=== PATIENT | male | born 1990 | race American Indian/Alaskan Native ===

== ENCOUNTER 2021-12-23 21:43 | Emergency (ER) | payer SELFPAY ==
[2021-12-23] MEDS ORDERED: Take Home: LORazepam 0.5 MG Tab, 2 Tab Pack PO ONE (22:05)
== END 2021-12-23 22:10 | disposition home or self-care (01) ==
LOC: MERGE 21:43 → VM.ED 21:43
DX: F41.9 Anxiety disorder, unspecified (principal); Z88.0 Allergy status to penicillin
CPT/HCPCS: 99283; A9270

== ENCOUNTER 2022-01-02 15:13 | Emergency (ER) | payer MEDICAID ==
[2022-01-02 16:08] LABS: BARBITURATE SCREEN,URINE NEGATIVE (NEGATIVE); BENZODIAZEPINES SCREEN,URINE NEGATIVE (NEGATIVE); BUPRENORPHINE SCREEN,URINE NEGATIVE (NEGATIVE); METHAMPHETAMINE SCREEN, URINE NEGATIVE (NEGATIVE); THC SCREEN,URINE 50 NG/ML POSITIVE (NEGATIVE)
[2022-01-02 16:10] LABS: CHLORIDE,CL 100 mmol/L (98-107); SODIUM,NA 135 mmol/L (136-145)
[2022-01-02 16:11] LABS: ANION GAP 13.7 mmol/L (5-15); ESTIMATED GFR 102 mL/min (>=60)
[2022-01-02] MEDS: busPIRone 5 MG Tab PO ONE (16:14)
== END 2022-01-02 18:10 | disposition home or self-care (01) ==
LOC: VM.ED 15:13
DX: R45.851 Suicidal ideations (principal); F41.9 Anxiety disorder, unspecified; F60.0 Paranoid personality disorder; Z88.0 Allergy status to penicillin
CPT/HCPCS: 36415; 80053; 80305-QW; 81003; 85025; 86140; 99284; A9270-GY

== ENCOUNTER 2022-04-30 16:15 | Emergency (ER) | payer MEDICAID ==
[2022-04-30] MEDS ORDERED: Take Home: LORazepam 0.5 MG Tab, 2 Tab Pack PO ONE (16:37)
== END 2022-04-30 16:49 | disposition home or self-care (01) ==
LOC: VM.ED 16:15
DX: F41.9 Anxiety disorder, unspecified (principal); Z88.0 Allergy status to penicillin
CPT/HCPCS: 99283; 99284; A9270-GY

== ENCOUNTER 2022-05-20 13:19 | Emergency (ER) | payer MEDICAID | END 2022-05-20 13:45 | disposition home or self-care (01) | LOC: VM.ED 13:19 | DX: R11.2 Nausea with vomiting, unspecified (principal); Z88.0 Allergy status to penicillin | CPT/HCPCS: 99283 ==

== ENCOUNTER 2022-07-12 18:02 | Emergency (ER) | payer MEDICAID ==
[2022-07-12 19:03] LABS: BARBITURATE SCREEN,URINE NEGATIVE (NEGATIVE)
[2022-07-12 19:04] LABS: BENZODIAZEPINES SCREEN,URINE POSITIVE (NEGATIVE); BUPRENORPHINE SCREEN,URINE NEGATIVE (NEGATIVE); METHAMPHETAMINE SCREEN, URINE NEGATIVE (NEGATIVE); THC SCREEN,URINE 50 NG/ML POSITIVE (NEGATIVE)
[2022-07-12 19:17] LABS: ACETAMINOPHEN 0 ug/ml (10-30); CHLORIDE,CL 104 mmol/L (98-107); ESTIMATED GFR 119 mL/min (>=60); SODIUM,NA 140 mmol/L (136-145)
[2022-07-12 20:02] LABS: CORONAVIRUS COVID-19 NAA NEGATIVE (NEGATIVE); RESPIRATORY SYNCYTIAL VIR NAA NEGATIVE (NEGATIVE)
== END 2022-07-12 21:30 ==
LOC: VM.ED 18:02
DX: R45.851 Suicidal ideations (principal); Z88.0 Allergy status to penicillin; Z20.822 Contact with and (suspected) exposure to COVID-19
CPT/HCPCS: 0241U; 36415; 80053; 80143; 80179; 80305-QW; 80307; 85025; 99283; 99285

== ENCOUNTER 2022-07-29 21:49 | Observation (INO) | payer SELFPAY ==
[2022-07-29 22:07] LABS: BASOPHILS PERCENT AUTO 0.4 % (0.2-1.2); EOSINOPHILS ABSOLUTE AUTO 0.4 x10^3/uL (0.0-0.5); EOSINOPHILS PERCENT AUTO 5.7 % (0.0-4.0); HEMOGLOBIN 12.3 g/dL (14.0-18.0); LYMPHOCYTES ABSOLUTE AUTO 2.4 x10^3/uL (1.0-4.8); LYMPHOCYTES PERCENT AUTO 34.4 % (25.0-50.0); MEAN CORPUSCULAR HEMOGLOBIN 27.9 pg (26.0-32.0); MEAN CORPUSCULAR HGB CONC 34.2 g/dL (32.0-36.0); MEAN CORPUSCULAR VOLUME 81.6 fL (78.0-93.0); MONOCYTES ABSOLUTE AUTO 0.8 x10^3/uL (0.0-0.8); NEUTROPHILS ABSOLUTE AUTO 3.4 x10^3/uL (1.8-7.7); NEUTROPHILS PERCENT AUTO 48.5 % (50.0-80.0); PLATELET COUNT,PLT 224 x10^3/uL (130-400); RED BLOOD CELL COUNT 4.41 x10^6/uL (4.5-6.0)
[2022-07-29 22:25] LABS: A/G RATIO 0.92; ALANINE AMINOTRANSFERASE,ALT 34 U/L (16-63); ALBUMIN 3.6 g/dL (3.4-5.0); ALKALINE PHOSPHATASE 81 U/L (46-116); ASPARTATE AMNIOTRANSFERASE,AST 20 U/L (15-37); BILIRUBIN TOTAL 0.4 mg/dL (0.2-1.0); BLOOD UREA NITROGEN,BUN 11 mg/dL (7-18); C-REACTIVE PROTEIN 7.1 mg/dL (<=0.9); CARBON DIOXIDE,CO2 31 mmol/L (21-32); CHLORIDE,CL 101 mmol/L (98-107); CREATININE 0.9 mg/dL (0.70-1.30); GLUCOSE RANDOM 117 mg/dL (70-99); POTASSIUM,K 3.5 mmol/L (3.5-5.1); PROTEIN TOTAL,TP 7.5 g/dL (6.4-8.2); SODIUM,NA 139 mmol/L (136-145)
[2022-07-29 22:26] LABS: ANION GAP 10.5 mmol/L (5-15); ESTIMATED GFR 115 mL/min (>=60)
[2022-07-29 22:33] LABS: ETHANOL BLOOD MEDICAL < 3 mg/dL (0-3)
[2022-07-29] MEDS: Naloxone 0.4 MG/ML SDV IVPUSH ONE (22:50)
[2022-07-29] MEDS: Sodium Chloride 0.9% 1,000 ML IV ONE (22:52)
[2022-07-29] MEDS: Flumazenil 0.1 MG/ML 5 ML MDV IVPUSH ONE ×2 (22:55→22:57)
[2022-07-29 23:21] LABS: AMPHETAMINES SCREEN, URINE NEGATIVE (NEGATIVE); BARBITURATE SCREEN,URINE NEGATIVE (NEGATIVE); BENZODIAZEPINES SCREEN,URINE POSITIVE (NEGATIVE); BUPRENORPHINE SCREEN,URINE POSITIVE (NEGATIVE); COCAINE METABOLITES,URINE NEGATIVE (NEGATIVE); METHADONE SCREEN, URINE NEGATIVE (NEGATIVE); METHAMPHETAMINE SCREEN, URINE NEGATIVE (NEGATIVE); OXYCODONE SCREEN,URINE NEGATIVE (NEGATIVE); PCP SCREEN,URINE NEGATIVE (NEGATIVE); THC SCREEN,URINE 50 NG/ML POSITIVE (NEGATIVE)
[2022-07-29 23:23] LABS: APPEARANCE,URINE CLEAR (CLEAR); BACTERIA,URINE RARE /HPF (NOT SEEN); BILIRUBIN,URINE NEGATIVE (NEGATIVE); COLOR,URINE DARK YELLOW (YELLOW); GLUCOSE,URINE NEGATIVE (NEGATIVE); KETONES,URINE NEGATIVE (NEGATIVE); LEUKOCYTE ESTERASE,URINE NEGATIVE (NEGATIVE); MUCUS,URINE MODERATE /LPF (NOT SEEN); NITRITE,URINE NEGATIVE (NEGATIVE); OCCULT BLOOD,URINE NEGATIVE (NEGATIVE); PH,URINE 6.5 (5.0-8.0); PROTEIN,URINE TRACE mg/dL (NEGATIVE); RBC,URINE 0-5 /HPF (NOT SEEN); UROBILINOGEN,URINE 0.2 EU/dL (0.2); WBC,URINE 0-5 /HPF (NOT SEEN)
[2022-07-30] MEDS ORDERED: Sodium Chloride 0.9% 10 ML Syringe FLUSH PRN (01:03)
[2022-07-30] MEDS ORDERED: Ondansetron 4 MG Tab.DIS PO PRN (01:03)
[2022-07-30] MEDS ORDERED: Ondansetron 4 MG/2 ML SDV IV PRN (01:03)
[2022-07-30] MEDS: Sodium Chloride 0.9% 1,000 ML IV SCH (02:00)
[2022-07-30 07:57] LABS: BASOPHILS PERCENT AUTO 0.4 % (0.2-1.2); EOSINOPHILS ABSOLUTE AUTO 0.5 x10^3/uL (0.0-0.5); EOSINOPHILS PERCENT AUTO 6.6 % (0.0-4.0); HEMATOCRIT 38.5 % (40.0-52.0); HEMOGLOBIN 12.7 g/dL (14.0-18.0); IMMATURE GRAN ABSOLUTE AUTO 0.01 x10^3/uL (0.00-0.07); LYMPHOCYTES ABSOLUTE AUTO 2.4 x10^3/uL (1.0-4.8); MEAN CORPUSCULAR HEMOGLOBIN 27.7 pg (26.0-32.0); MEAN CORPUSCULAR VOLUME 84.1 fL (78.0-93.0); MONOCYTES ABSOLUTE AUTO 0.9 x10^3/uL (0.0-0.8); MONOCYTES PERCENT AUTO 10.6 % (2.0-11.0); NEUTROPHILS ABSOLUTE AUTO 4.2 x10^3/uL (1.8-7.7); NEUTROPHILS PERCENT AUTO 52.3 % (50.0-80.0); PLATELET COUNT,PLT 239 x10^3/uL (130-400); RED BLOOD CELL COUNT 4.58 x10^6/uL (4.5-6.0)
[2022-07-30 08:11] LABS: CALCIUM 8.6 mg/dL (8.5-10.1); CREATININE 0.7 mg/dL (0.70-1.30); EST CRCL DRUG DOSING (CG) 158.37 mL/min; POTASSIUM,K 3.9 mmol/L (3.5-5.1)
[2022-07-30 08:15] LABS: ANION GAP 10.9 mmol/L (5-15)
[2022-07-30] MEDS: LORazepam 1 MG Tab PO ONE (10:42)
[2022-07-30 10:57] VITALS: BP 145/96; PULSE 114
== END 2022-07-30 11:11 | disposition home or self-care (01) ==
LOC: VM.ED 21:49 → VM.MS 07-30 00:59
PROVIDERS: ADMIT Physician Assistant Medical; ATTEND Physician Assistant Medical
DX: F19.10 Other psychoactive substance abuse, uncomplicated (principal); F22 Delusional disorders; F41.9 Anxiety disorder, unspecified; R41.0 Disorientation, unspecified; F32.A Depression, unspecified; Z79.899 Other long term (current) drug therapy; F43.10 Post-traumatic stress disorder, unspecified; Z88.0 Allergy status to penicillin
CPT/HCPCS: 36415; 80048; 80053; 80305-QW; 80307; 81001; 85025; 86140; 93005; 93010; 96361; 96374; 96375; 99236; 99285-25; A9270-GY; G0378; J2310; J3490; J7030

== ENCOUNTER 2022-08-04 16:29 | Emergency (ER) | payer SELFPAY ==
[2022-08-04] MEDS: Take Home: Ketorolac 10 MG Tab, 4 Tab Pack PO ONE (18:29)
== END 2022-08-04 18:30 | disposition home or self-care (01) ==
LOC: VM.ED 16:29
DX: M25.512 Pain in left shoulder (principal); Z88.0 Allergy status to penicillin
CPT/HCPCS: 73030-LT; 99283; A9270-GY

== ENCOUNTER 2022-08-09 22:08 | Emergency (ER) | payer SELFPAY | END 2022-08-09 23:10 | disposition home or self-care (01) | LOC: VM.ED 22:08 | DX: F41.9 Anxiety disorder, unspecified (principal); Z88.0 Allergy status to penicillin | CPT/HCPCS: 99283; 99284 ==

== ENCOUNTER 2022-08-25 20:29 | Emergency (ER) | payer MEDICAID ==
[2022-08-25] MEDS: Take Home: Ondansetron 4 MG Tab.DIS, 5 Tab Pack PO ONE (21:07)
== END 2022-08-25 21:10 | disposition home or self-care (01) ==
LOC: VM.ED 20:29
DX: R11.2 Nausea with vomiting, unspecified (principal); Z88.0 Allergy status to penicillin
CPT/HCPCS: 99283; Q0162

== ENCOUNTER 2022-09-07 10:23 | Emergency (ER) | payer MEDICAID ==
[2022-09-07 10:56] LABS: BASOPHILS PERCENT AUTO 0.3 % (0.2-1.2); EOSINOPHILS ABSOLUTE AUTO 0.5 x10^3/uL (0.0-0.5); EOSINOPHILS PERCENT AUTO 6.9 % (0.0-4.0); HEMATOCRIT 38.6 % (40.0-52.0); IMMATURE GRAN ABSOLUTE AUTO 0.01 x10^3/uL (0.00-0.07); LYMPHOCYTES ABSOLUTE AUTO 2.4 x10^3/uL (1.0-4.8); LYMPHOCYTES PERCENT AUTO 33.8 % (25.0-50.0); MEAN CORPUSCULAR HEMOGLOBIN 27.9 pg (26.0-32.0); MEAN CORPUSCULAR HGB CONC 33.7 g/dL (32.0-36.0); MEAN CORPUSCULAR VOLUME 82.8 fL (78.0-93.0); MONOCYTES ABSOLUTE AUTO 0.4 x10^3/uL (0.0-0.8); MONOCYTES PERCENT AUTO 6.1 % (2.0-11.0); NEUTROPHILS ABSOLUTE AUTO 3.8 x10^3/uL (1.8-7.7); NEUTROPHILS PERCENT AUTO 52.8 % (50.0-80.0); PLATELET COUNT,PLT 244 x10^3/uL (130-400); RED BLOOD CELL COUNT 4.66 x10^6/uL (4.5-6.0); WHITE BLOOD CELL COUNT,WBC 7.2 x10^3/uL (4.0-10.0)
[2022-09-07 11:26] LABS: A/G RATIO 1.08; ALANINE AMINOTRANSFERASE,ALT 18 U/L (16-63); ALKALINE PHOSPHATASE 100 U/L (46-116); ASPARTATE AMNIOTRANSFERASE,AST 13 U/L (15-37); BILIRUBIN TOTAL 0.7 mg/dL (0.2-1.0); BLOOD UREA NITROGEN,BUN 11 mg/dL (7-18); CALCIUM 8.4 mg/dL (8.5-10.1); CARBON DIOXIDE,CO2 28 mmol/L (21-32); CHLORIDE,CL 106 mmol/L (98-107); CREATININE 1.1 mg/dL (0.70-1.30); ESTIMATED GFR 90 mL/min (>=60); ETHANOL BLOOD MEDICAL < 3 mg/dL (0-3); GLUCOSE RANDOM 115 mg/dL (70-99); PROTEIN TOTAL,TP 7.7 g/dL (6.4-8.2); SODIUM,NA 142 mmol/L (136-145)
[2022-09-07 11:29] LABS: APPEARANCE,URINE CLEAR (CLEAR); BILIRUBIN,URINE NEGATIVE (NEGATIVE); COLOR,URINE YELLOW (YELLOW); GLUCOSE,URINE NEGATIVE (NEGATIVE); KETONES,URINE NEGATIVE (NEGATIVE); LEUKOCYTE ESTERASE,URINE NEGATIVE (NEGATIVE); NITRITE,URINE NEGATIVE (NEGATIVE); OCCULT BLOOD,URINE NEGATIVE (NEGATIVE); PROTEIN,URINE NEGATIVE (NEGATIVE); UROBILINOGEN,URINE 0.2 EU/dL (0.2)
[2022-09-07 11:32] LABS: ACETAMINOPHEN 0 ug/ml (10-30)
[2022-09-07 11:33] LABS: AMPHETAMINES SCREEN, URINE NEGATIVE (NEGATIVE); BARBITURATE SCREEN,URINE NEGATIVE (NEGATIVE)
[2022-09-07 11:34] LABS: BENZODIAZEPINES SCREEN,URINE NEGATIVE (NEGATIVE); BUPRENORPHINE SCREEN,URINE POSITIVE (NEGATIVE); COCAINE METABOLITES,URINE NEGATIVE (NEGATIVE); METHADONE SCREEN, URINE NEGATIVE (NEGATIVE); METHAMPHETAMINE SCREEN, URINE NEGATIVE (NEGATIVE); OXYCODONE SCREEN,URINE NEGATIVE (NEGATIVE); PCP SCREEN,URINE NEGATIVE (NEGATIVE); THC SCREEN,URINE 50 NG/ML POSITIVE (NEGATIVE)
[2022-09-07] MEDS: LORazepam 1 MG Tab PO ONE (12:54)
== END 2022-09-07 13:23 ==
LOC: VM.ED 10:23 → EEVIPCON 10:23 → VM.ED 13:23
DX: R45.851 Suicidal ideations (principal); F41.0 Panic disorder [episodic paroxysmal anxiety]; Z88.0 Allergy status to penicillin; Z87.891 Personal history of nicotine dependence
CPT/HCPCS: 36415; 80053; 80143; 80179; 80305-QW; 80307; 81003; 85025; 99284; 99285; A9270-GY

== ENCOUNTER 2022-10-10 23:25 | Emergency (ER) | payer MEDICAID ==
[2022-10-11 00:05] LABS: BASOPHILS PERCENT AUTO 0.4 % (0.2-1.2); EOSINOPHILS ABSOLUTE AUTO 0.6 x10^3/uL (0.0-0.5); EOSINOPHILS PERCENT AUTO 8.2 % (0.0-4.0); HEMATOCRIT 36.8 % (40.0-52.0); HEMOGLOBIN 12.8 g/dL (14.0-18.0); IMMATURE GRAN ABSOLUTE AUTO 0.01 x10^3/uL (0.00-0.07); LYMPHOCYTES ABSOLUTE AUTO 2.5 x10^3/uL (1.0-4.8); LYMPHOCYTES PERCENT AUTO 33.5 % (25.0-50.0); MEAN CORPUSCULAR HEMOGLOBIN 28.9 pg (26.0-32.0); MEAN CORPUSCULAR HGB CONC 34.8 g/dL (32.0-36.0); MEAN CORPUSCULAR VOLUME 83.1 fL (78.0-93.0); MONOCYTES ABSOLUTE AUTO 0.5 x10^3/uL (0.0-0.8); MONOCYTES PERCENT AUTO 6.8 % (2.0-11.0); NEUTROPHILS ABSOLUTE AUTO 3.8 x10^3/uL (1.8-7.7); PLATELET COUNT,PLT 248 x10^3/uL (130-400); RED BLOOD CELL COUNT 4.43 x10^6/uL (4.5-6.0); WHITE BLOOD CELL COUNT,WBC 7.4 x10^3/uL (4.0-10.0)
[2022-10-11 00:08] LABS: APPEARANCE,URINE CLEAR (CLEAR); BILIRUBIN,URINE NEGATIVE (NEGATIVE); COLOR,URINE YELLOW (YELLOW); GLUCOSE,URINE NEGATIVE (NEGATIVE); KETONES,URINE NEGATIVE (NEGATIVE); LEUKOCYTE ESTERASE,URINE NEGATIVE (NEGATIVE); NITRITE,URINE NEGATIVE (NEGATIVE); OCCULT BLOOD,URINE NEGATIVE (NEGATIVE); PROTEIN,URINE NEGATIVE (NEGATIVE)
[2022-10-11 00:13] LABS: AMPHETAMINES SCREEN, URINE NEGATIVE (NEGATIVE); BARBITURATE SCREEN,URINE NEGATIVE (NEGATIVE); BENZODIAZEPINES SCREEN,URINE NEGATIVE (NEGATIVE); BUPRENORPHINE SCREEN,URINE NEGATIVE (NEGATIVE); COCAINE METABOLITES,URINE NEGATIVE (NEGATIVE); METHADONE SCREEN, URINE NEGATIVE (NEGATIVE); METHAMPHETAMINE SCREEN, URINE NEGATIVE (NEGATIVE); OXYCODONE SCREEN,URINE NEGATIVE (NEGATIVE); PCP SCREEN,URINE NEGATIVE (NEGATIVE); THC SCREEN,URINE 50 NG/ML POSITIVE (NEGATIVE)
[2022-10-11 00:22] LABS: A/G RATIO 1.08; ALANINE AMINOTRANSFERASE,ALT 15 U/L (16-63); ALBUMIN 3.9 g/dL (3.4-5.0); ALKALINE PHOSPHATASE 89 U/L (46-116); ANION GAP 15.7 mmol/L (5-15); ASPARTATE AMNIOTRANSFERASE,AST 11 U/L (15-37); BILIRUBIN TOTAL 0.8 mg/dL (0.2-1.0); BLOOD UREA NITROGEN,BUN 13 mg/dL (7-18); CALCIUM 8.8 mg/dL (8.5-10.1); CARBON DIOXIDE,CO2 23 mmol/L (21-32); CHLORIDE,CL 104 mmol/L (98-107); CREATININE 0.8 mg/dL (0.70-1.30); EST CRCL DRUG DOSING (CG) 125.21 mL/min; ESTIMATED GFR 119 mL/min (>=60); GLUCOSE RANDOM 98 mg/dL (70-99); POTASSIUM,K 3.7 mmol/L (3.5-5.1); PROTEIN TOTAL,TP 7.5 g/dL (6.4-8.2); SODIUM,NA 139 mmol/L (136-145)
[2022-10-11 00:25] LABS: ETHANOL BLOOD MEDICAL < 3 mg/dL (0-3)
[2022-10-11 00:28] LABS: ACETAMINOPHEN 0 ug/ml (10-30)
== END 2022-10-11 05:01 ==
LOC: VM.ED 23:25
DX: R45.851 Suicidal ideations (principal); Z88.0 Allergy status to penicillin
CPT/HCPCS: 36415; 80053; 80143; 80179; 80305-QW; 80307; 81003; 85025; 99284; 99285

== ENCOUNTER 2023-02-15 19:55 | Emergency (ER) | payer BC, MEDICAID ==
[2023-02-15 20:23] LABS: BASOPHILS PERCENT AUTO 0.2 % (0.2-1.2); EOSINOPHILS ABSOLUTE AUTO 0.5 x10^3/uL (0.0-0.5); EOSINOPHILS PERCENT AUTO 5.9 % (0.0-4.0); HEMOGLOBIN 13.8 g/dL (14.0-18.0); IMMATURE GRAN ABSOLUTE AUTO 0.01 x10^3/uL (0.00-0.07); LYMPHOCYTES ABSOLUTE AUTO 3.3 x10^3/uL (1.0-4.8); LYMPHOCYTES PERCENT AUTO 37.7 % (25.0-50.0); MEAN CORPUSCULAR HEMOGLOBIN 27.8 pg (26.0-32.0); MEAN CORPUSCULAR HGB CONC 32.9 g/dL (32.0-36.0); MEAN CORPUSCULAR VOLUME 84.7 fL (78.0-93.0); MONOCYTES ABSOLUTE AUTO 0.7 x10^3/uL (0.0-0.8); MONOCYTES PERCENT AUTO 8.1 % (2.0-11.0); NEUTROPHILS ABSOLUTE AUTO 4.2 x10^3/uL (1.8-7.7); PLATELET COUNT,PLT 276 x10^3/uL (130-400); RED BLOOD CELL COUNT 4.96 x10^6/uL (4.5-6.0); WHITE BLOOD CELL COUNT,WBC 8.7 x10^3/uL (4.0-10.0)
[2023-02-15] MEDS ORDERED: LORazepam 1 MG Tab PO ONE (20:26)
[2023-02-15 20:44] LABS: ASPARTATE AMNIOTRANSFERASE,AST 13 U/L (15-37); BLOOD UREA NITROGEN,BUN 13 mg/dL (7-18); CALCIUM 8.9 mg/dL (8.5-10.1); CARBON DIOXIDE,CO2 26 mmol/L (21-32); CHLORIDE,CL 104 mmol/L (98-107); CREATININE 0.9 mg/dL (0.70-1.30); GLUCOSE RANDOM 100 mg/dL (70-99); POTASSIUM,K 4.1 mmol/L (3.5-5.1); SODIUM,NA 142 mmol/L (136-145)
[2023-02-15 20:46] LABS: ANION GAP 16.1 mmol/L (5-15); ESTIMATED GFR 115 mL/min (>=60)
[2023-02-15 21:10] LABS: A/G RATIO 1.03; ALANINE AMINOTRANSFERASE,ALT 21 U/L (16-63); ALKALINE PHOSPHATASE 89 U/L (46-116); BILIRUBIN TOTAL 0.3 mg/dL (0.2-1.0); PROTEIN TOTAL,TP 7.9 g/dL (6.4-8.2); TSH ULTRASENSITIVE 1.891 uIU/mL (0.358-3.74)
[2023-02-15 21:11] LABS: AMPHETAMINES SCREEN, URINE NEGATIVE (NEGATIVE); BARBITURATE SCREEN,URINE NEGATIVE (NEGATIVE); BENZODIAZEPINES SCREEN,URINE NEGATIVE (NEGATIVE); BUPRENORPHINE SCREEN,URINE NEGATIVE (NEGATIVE); COCAINE METABOLITES,URINE NEGATIVE (NEGATIVE); METHADONE SCREEN, URINE NEGATIVE (NEGATIVE); METHAMPHETAMINE SCREEN, URINE NEGATIVE (NEGATIVE); OXYCODONE SCREEN,URINE NEGATIVE (NEGATIVE); PCP SCREEN,URINE NEGATIVE (NEGATIVE)
[2023-02-15 21:11] LABS: ACETAMINOPHEN 0 ug/ml (10-30); ETHANOL BLOOD MEDICAL < 3 mg/dL (0-3)
[2023-02-15 21:13] LABS: THC SCREEN,URINE 50 NG/ML POSITIVE (NEGATIVE)
== END 2023-02-15 22:40 ==
LOC: VM.ED 19:55
DX: R45.851 Suicidal ideations (principal); F32.A Depression, unspecified; Z79.899 Other long term (current) drug therapy; Z88.0 Allergy status to penicillin
CPT/HCPCS: 36415; 80053; 80143; 80179; 80305-QW; 80307; 82140; 83735; 84443; 85025; 99283; 99285; A9270-GY

== ENCOUNTER 2023-03-06 19:12 | Emergency (ER) | payer BC ==
[2023-03-06] MEDS ORDERED: Take Home: predniSONE 20 MG, 2 Tab Pack PO ONE (19:33)
[2023-03-06] MEDS ORDERED: ClonazePAM 0.5 MG Tab PO SCH (19:42)
[2023-03-06] MEDS ORDERED: ClonazePAM 0.5 MG Tab PO ONE (19:46)
== END 2023-03-06 19:59 | disposition home or self-care (01) ==
LOC: VM.ED 19:12
DX: J20.9 Acute bronchitis, unspecified (principal); Z88.0 Allergy status to penicillin; Z79.899 Other long term (current) drug therapy
CPT/HCPCS: 99283; A9270; J7512

== ENCOUNTER 2023-03-14 08:29 | Emergency (ER) | payer BC | END 2023-03-14 09:15 | disposition home or self-care (01) | LOC: VM.ED 08:29 | DX: J03.90 Acute tonsillitis, unspecified (principal); Z88.0 Allergy status to penicillin; Z79.899 Other long term (current) drug therapy | CPT/HCPCS: 99283 ==